=== PATIENT | female | born 1955 | race Caucasian/White ===

== ENCOUNTER 2018-09-21 12:25 | Emergency (ER) | payer MEDICAID ==
--- NOTE | 2018-09-21 13:04 | ED Physician Chart ---
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:: Allergies Allergy/AdvReac Type Severity Reaction Status Date / Time Penicillins [PCN] Allergy Verified 09/21/18 12:38 Vitals:: Vital Signs - 8 hr 09/21/18 12:38 Temp 97.1 F HR 110 RR 16 BP 138/75 O2 Sat % 98 Historian:: Patient Review:: Nurse's Note Reviewed ED Review of Systems - Review of Systems General/Constitutional: No fever, No chills, No weight loss, No weakness, No diaphoresis, No edema, No loss of appetite Skin: No skin lesions, No rash, No bruising Head: No headache, No light-headedness Eyes: No loss of vision, No pain, No diplopia ENT: No earache, No nasal drainage, No sore throat, No tinnitus Neck: No neck pain, No swelling, No thyromegaly, No stiffness, No mass noted Cardio Vascular: No chest pain, No palpitations, No PND, No orthopnea, No edema Pulmonary: No SOB, No cough, No sputum, No wheezing GI: No nausea, No vomiting, No diarrhea, Pain, No melena, No hematochezia, No constipation, No hematemesis G/U: No dysuria, No frequency, No hematuria, No nacturia 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, No abnormal vaginal bleed, No contraction Musculoskeletal: Bone or joint pain, Back pain, No muscle pain Endocrine: No polyuria, No polydipsia Psychiatric: No prior psych history, No depression, No anxiety, No suicidal ideation, No homicidal ideation, No auditory hallucination Hematopoietic: No bruising, No lymphadenopathy Allergic/Immuno: No urticaria, No angioedema Neurological: No syncope, No focal symptoms, No weakness, No paresthesia, No headache, No seizure, No dizziness, No confusion, No vertigo ED Past Medical History - Past Medical History Obtainable: Yes Past Medical History: HTN, DM, Dyslipidemia Family History: Diabetes Melitus, HTN Social History: Non Smoker, No Alcohol, No Drug Use, Surgical History: Hysterectomy Psychiatricy History: None Medication: Reviewed Family Medical History - Family Member Mother Living Status: Hx Family Diabetes: Yes ED Physical Exam - Physical Examination General/Constitutional: Awake, Well-developed, well-nourished, Alert, No distress, GCS 15, Non-toxic appearing, Ambulatory Head: Atraumatic Eyes: Lids, conjuctiva normal, PERRL, EOMI Skin: Nl inspection, No rash, No skin lesions, No ecchymosis, Well hydrated, No lymphadenopathy ENMT: External ears, nose nl, TM canals nl, Nasal exam nl, Lips, teeth, gums nl , Oropharynx nl, Tonsils nl Neck: Nontender, Full ROM w/o pain, No JVD, No nuchal rigidity, No bruit, No mass, No stridor Other Neck comments:: supple; no meningeal signs; no cervical tenderness; no bruits Respiratory: Nl effort/Exclusion, Clear to Auscultation, No Wheeze/Rhonchi/Rales Cardio Vascular: RRR, No murmur, gallop, rubs, NL S1 S2, Carotid/Femoral/Distal pulses equal bilaterally GI: No tenderness/rebounding/guarding, No organomegaly, No hernia, Normal BS's, Nondistended, No mass/bruits, No McBurney tenderness, Rectum exam nl Other GI comments:: no pulsatile masses; good BS : No CVA tenderness Other comments:: /Pelvic Exam: deferred by pt Extremities: No tenderness or effusion, Full ROM, normal strength in all extremities, No edema, Normal digits & nails Neuro/Psych: Alert/oriented, DTR's symmetric, Normal sensory exam, Normal motor strength, Judgement/insight normal, Mood normal, Normal gait, No focal deficits Other Neuro/Psych comments:: no focal signs Misc: Normal back, No paraspinal tenderness ED Labs/Radiology/EKG Results - Lab Results Comments:: Reviewed - Radiology Results Comments:: NAD - EKG Interpretations EKG Time:: 13:47 Rate & Rhythm: 99; NSR Comments:: WNL ED Septic Shock - . Is Septic Shock (SBP<90, OR Lactate>4 mmol\L) present?: No - <6hrs of presentation: Vital Signs: Vital Signs - 8 hr 09/21/18 12:38 Temp 97.1 F HR 110 RR 16 BP 138/75 O2 Sat % 98 ED Reassessment (Disposition) - Reassessment Reassessment:: pt tolerated po fluids well in ER; pt is asymptomatic upon discharge Reassessment Condition:: Improved - Diagnosis Diagnosis:: Abdominal Pain; Back Pain; Flank Pain; Abdominal/Back/Flank Pain-Resolved; UTI; Hyperglycemia; Hyperlipidemia; DM; HTN; Nephrolithiasis; Hematuria - Aftercare/Follow up Instructions Aftercare/Follow-Up Instructions:: Counseled pt regarding lab results/diagnosis & need follow up, Refer to Discharge Instructions, Counseled pt & family regarding lab results/diagnosis & need follow up Medication Prescribed:: Rx: Levaquin 500mg po qd x 10 days; Urine Strainer; Strain all Urine; encourage fluids especially citric acid juices - Patient Disposition Discharge/Transfer:: Home Condition at Disposition:: Stable, Improved (X-Rays Instructions; RTER prn if existing s/s reoccur and/or get worse and/or any other new s/s occur; ACIs given for all above Dx; Refer to GI/ Specialists/Spinal Specialist/Orthopedist /Greeting Card Maker ZAK; F/U with PMD in one day or prn; RTER prn if concerned)
[2018-09-21 13:22] LABS: % BASOPHILS 0.4 % (0.0-2.0); % EOSINOPHILS 0.9 % (0.0-5.0); % LYMPHOCYTES 28.6 % (20.0-50.0); % MONOCYTES 6.7 % (2.0-10.0); % NEUTROPHILS 63.4 % (40.0-80.0); HEMATOCRIT 39.2 % (41.0-60); HEMOGLOBIN 12.7 gm/dL (12-16); LYMPHOCYTE ABSOLUTE 1.5 Th/cmm (1.5-3.0); MEAN CELL VOLUME 93.3 fl (81-100); MEAN CORPUSCULAR HEMOGLOBIN 30.3 pg (27.0-31.0); MEAN CORPUSCULAR HGB CONC 32.5 pg (28.0-36.0); MEAN PLATELET VOLUME 11.2 fl; MONOCYTE ABSOLUTE 0.4 Th/cmm (0.3-1.0); NEUTROPHILE ABSOLUTE 3.5 Th/cmm (1.8-8.0); PLATELET COUNT 183 Th/cmm (150-400); RED CELL DISTRIBUTION WIDTH 12.9 % (11.5-20.0); WHITE BLOOD COUNT 5.4 Th/cmm (4.8-10.8)
[2018-09-21] MEDS: Sodium Chloride 0.9% 1,000 ML IV ONE (13:30)
[2018-09-21 13:33] LABS: INR 0.97 (0.5-1.4); PROTHROMBIN TIME (TEST) 10.1 SECONDS (9.5-11.5)
[2018-09-21 13:41] LABS: URINE SOURCE CLEAN C
[2018-09-21 13:46] LABS: URINE BILIRUBIN NEGATIVE (NEGATIVE); URINE BLOOD TRACE (NEGATIVE); URINE GLUCOSE (UA) >=1000 mg/dL (NEGATIVE); URINE KETONE TRACE mg/dL (NEGATIVE); URINE LEUKOCYTE ESTERASE NEGATIVE (NEGATIVE); URINE MICROSCOPIC INDICATED? YES; URINE NITRATE NEGATIVE (NEGATIVE); URINE PH 5.5 (4.6 - 8.0); URINE PROTEIN 30 mg/dL (NEGATIVE); URINE UROBILINOGEN 0.2 E.U./dL (0.2 - 1.0)
--- NOTE | 2018-09-21 13:49 | Diagnostic Imaging Report ---
CHEST X-RAY: AP view INDICATION: pain COMPARISON: None FINDINGS: There is exenteration of the interstitial lung markings. There is no focal consolidation or pleural effusions . Mild cardiomegaly is noted with atherosclerosis. Degenerative changes of the spine are noted. IMPRESSION: Accentuation of the interstitial lung markings. No focal consolidation identified Mild cardiomegaly with atherosclerosis.
[2018-09-21 13:52] LABS: URINE CLARITY HAZY (CLEAR); URINE COLOR YELLOW
--- NOTE | 2018-09-21 13:52 | Diagnostic Imaging Report ---
CT abdomen and pelvis without intravenous contrast Indication: Abdominal pain Comparison: None, Technique: Axial images were obtained from the lung bases to the bilateral proximal femurs without IV contrast. Coronal reconstructions were made. total DLP: 507, CTDI10.4 FINDINGS: Hypoventilatory changes are seen with mild right basal airspace disease. Assessment of the solid organs is limited due to lack of IV contrast. Sub-CM low-density lesion of the inferior right lobe of the liver is noted, too small to characterize but suggestive of the cysts. No focal splenic, pancreatic, or adrenal lesions. No evidence of Hydronephrosis or nephrolithiasis. Patient is status post hysterectomy. Moderate stool is seen throughout the colon. No evidence of obstruction. Distended food-filled stomach is noted. No appendicitis. Skinfold versus less likely skin defect of the left frontal region is noted. Diffuse atherosclerosis is noted. Degenerative changes of the spine and pelvis are noted. IMPRESSION: Moderate stool throughout the colon. No evidence of bowel obstruction. Distended food -filled stomach. Right basal airspace disease. Faint pneumonia cannot be excluded. Evidence of prior hysterectomy. Skin fold versus less likely soft tissue defect of the left flank region, correlate clinically. Atherosclerotic vascular disease.
[2018-09-21 13:54] LABS: URINE BACTERIA FEW /hpf (NONE SEEN); URINE EPITHELIAL CELLS MODERATE /lpf (FEW); URINE WBC 0-2 /hpf (0-5)
[2018-09-21 14:03] LABS: ALB/GLOB RATIO 1.1 (1.0-1.8); ALKALINE PHOSPHATASE 64 U/L (34-104); AMYLASE SERUM 53 U/L (29-103); ANION GAP 16.9 (7.0-16.0); BILIRUBIN,TOTAL 0.4 mg/dL (0.3-1.0); BUN - UREA NITROGEN 11 mg/dL (7-25); CALCIUM SERUM 9.4 mg/dL (8.6-10.3); CARBON DIOXIDE 22.1 mEq/L (21.0-31.0); CHLORIDE 107 mEq/L (98-107); CHOLESTEROL 184 mg/dL (<200); CREATININE - SERUM 0.6 mg/dL (0.6-1.2); CREATININE KINASE 56 U/L (30-223); GFR AFRICAN-AMERICAN > 60.0 ml/min (>90); GFR NON AFRICAN-AMERICAN > 60.0 ml/min; GLUCOSE 278 mg/dL (70-105); HDL -HIGH DENSITY LIPOPROTEIN 48 mg/dL (23-92); LIPASE 57 U/L (11-82); SGOT 29 U/L (13-39); SGPT/ALT 32 U/L (7-52); SODIUM SERUM 142 mEq/L (136-145); TOTAL PROTEIN,SERUM 7.7 gm/dL (6.0-8.3); TRIGLYCERIDES 234 mg/dL (<150)
[2018-09-21] MEDS: Levofloxacin 500mg/100mL 500 MG/100 ML BAG IV ONE (15:39)
[2018-09-21] MEDS ORDERED: Levofloxacin 500mg/100mL 500 MG/100 ML BAG IV ONE (15:39)
== END 2018-09-21 17:17 | disposition home or self-care (01) ==
LOC: ER 12:25
DX: N39.0 Urinary tract infection, site not specified (principal); I10 Essential (primary) hypertension; E11.65 Type 2 diabetes mellitus with hyperglycemia; E78.5 Hyperlipidemia, unspecified; N20.0 Calculus of kidney; Z90.710 Acquired absence of both cervix and uterus; Z88.0 Allergy status to penicillin
CPT/HCPCS: 99284; 96365; 96361; 96375; 94760; 93005; 71045; 74176; 84484; 83880; 36415; 85025; 85610; 87086; 81001; 82150; 82550; 83036; 83690; 80053; 80061; J1885; J1956; Z7502